=== PATIENT | male | born 1975 | race Two or more races ===

== ENCOUNTER 2020-11-24 12:34 | Emergency (ER) | payer BC, MEDICAID, OTHER ==
[~2020-11-24] VITALS: Ht 182.9 cm; Wt 105.6 kg
[2020-11-24 12:35] VITALS: BP 132/85
--- NOTE | 2020-11-24 12:46 | NUR ---
LINEN SORTER: PT AMBULATORY TO ROOM FROM LOBBY AT THIS TIME
== END 2020-11-24 13:43 | disposition home or self-care (01) ==
LOC: ED 13:30
DX: M54.41 Lumbago with sciatica, right side (principal)
CPT/HCPCS: 99283

== ENCOUNTER 2020-12-23 13:06 | Emergency (ER) | payer BC ==
[~2020-12-23] VITALS: Ht 182.9 cm; Wt 103.8 kg
[2020-12-23] MEDS ORDERED: GLYB5TAB3 PO (13:33)
[2020-12-23] MEDS ORDERED: PRED20TA PO (13:33)
[2020-12-23] MEDS ORDERED: METF10007 PO (13:33)
[2020-12-23] MEDS ORDERED: CYCL10TA2 PO (13:33)
--- NOTE | 2020-12-23 13:33 | NUR ---
Pt came in today d/t worsening back pain that is now wrapping around to the front. Pt previously seen and was prescribed flexeril and prednisone which pt reports are not helping. hx of back pain w/ sx
--- NOTE | 2020-12-23 13:42 | NUR ---
VSS. MEHTA. CALL LIGHT WITHIN REACH.
--- NOTE | 2020-12-23 14:27 | NUR ---
PT OFF THE FLOOR TO CT
[2020-12-23] MEDS ORDERED: SODIUM CHLORIDE FLUSH 10ML SYR IVF ONE (14:30)
[2020-12-23] MEDS ORDERED: KETOROLAC 30 MG/1 ML IV ONE (14:30)
[2020-12-23] MEDS ORDERED: HYDROmorphone 1 MG/ML, 1ML INJ IV ONE ×2 (14:30→16:00)
--- NOTE | 2020-12-23 14:32 | NUR ---
Note josey in EDM - 12/23/20 at 1433 by ARPAN PT DESCRIBES HEADACHE IMPROVED AND RATES DISCOMFORT 1/10. INITIAL DISCOMFORT WAS 8/10.
[2020-12-23] MEDS ORDERED: HYDROmorphone 1 MG/ML, 1ML INJ ONE ×2 (15:06→16:07)
[2020-12-23] MEDS ORDERED: KETOROLAC 30 MG/1 ML ONE (15:06)
--- NOTE | 2020-12-23 16:09 | NUR ---
dr suh spoke with dr leryo
[2020-12-23 17:00] VITALS: BP 133/74
== END 2020-12-23 17:03 | disposition home or self-care (01) ==
LOC: ED 13:18
DX: M54.16 Radiculopathy, lumbar region (principal); E11.9 Type 2 diabetes mellitus without complications
CPT/HCPCS: 72148; 96374; 96375; 96376; 99285; J1170; J1885

== ENCOUNTER 2020-12-25 19:44 | Emergency (ER) | payer BC ==
[~2020-12-25] VITALS: Ht 182.9 cm; Wt 110.0 kg
[~2020-12-25 19:44] MED LIST: CYCL10TA2 PO; GLYB5TAB3 PO; METF10007 PO; PRED20TA PO
[2020-12-25 22:28] VITALS: BP 110/76
[2020-12-26] MEDS ORDERED: DIAZEPAM 5 MG TABLET PO ONE
[2020-12-26] MEDS ORDERED: DIAZEPAM 5 MG TABLET ONE (00:03)
[2020-12-26] MEDS ORDERED: HYDROmorphone 1 MG/ML, 1ML INJ ONE ×2 (00:03→01:07)
[2020-12-26] MEDS ORDERED: HYDROmorphone 1 MG/ML, 1ML INJ IM ONE ×2 (01:00)
--- NOTE | 2020-12-26 01:20 | NUR ---
Patient/Caregiver given discharge instructions and they have confirmed that they understand the instructions. Patient wheeled to dc by
== END 2020-12-26 01:21 | disposition home or self-care (01) ==
LOC: ED 20:46
DX: M54.16 Radiculopathy, lumbar region (principal); M54.5 Low back pain; E11.9 Type 2 diabetes mellitus without complications; F17.210 Nicotine dependence, cigarettes, uncomplicated
CPT/HCPCS: 96372; 99284; 99406; J1170

== ENCOUNTER 2021-01-03 06:28 | Emergency (ER) | payer BC ==
[~2021-01-03] VITALS: Ht 182.9 cm; Wt 105.0 kg
--- NOTE | 2021-01-03 06:50 | NUR ---
ASSUMED CARE OF PT. HE IS HERE FOR LBP AND SCIATIC PAIN. SAW OUTPT MD, WAITING FOR CT AND WAS PRESCRIBED PAIN MEDS. THEY ARE NOT WORKING. VSNurys, TYSON. CALL LIGHT WITHIN REACH. DR. MERCADO BEDSIDE.
[2021-01-03] MEDS ORDERED: HYDROmorphone 2 MG/ML, 1ML IM ONE (07:00)
[2021-01-03] MEDS ORDERED: DIAZEPAM 5 MG TABLET PO ONE (07:00)
[2021-01-03] MEDS ORDERED: DIAZEPAM 5 MG TABLET ONE (07:03)
[2021-01-03] MEDS ORDERED: HYDROmorphone 2 MG/ML, 1ML ONE ×2 (07:04→08:14)
--- NOTE | 2021-01-03 07:11 | NUR ---
PT MEDICATED, SEE MAR. TYSON SHANKAR. CALL LIGHT WITHIN REACH.
--- NOTE | 2021-01-03 07:16 | NUR ---
DR. MERCADO REQUESTED DOSES OF PT NEWLY PRESCRIBED MEDS, IS BRINGING THEM HERE.
--- NOTE | 2021-01-03 07:46 | NUR ---
PT RATES PAIN 04/30. DR. MERCADO NOTIFIED, HE WANTS TO ALLOW MORE TIME FOR MEDICATION TO WORK. NADN WITH PT. CALL LIGHT W/IN REACH.
[2021-01-03] MEDS ORDERED: OXYC1TAB14 PO (07:51)
[2021-01-03] MEDS ORDERED: GABA600T7 PO (07:51)
[2021-01-03] MEDS ORDERED: METH-640 PO (07:51)
--- NOTE | 2021-01-03 08:03 | NUR ---
PRECEPT RN: HOME MEDICATIONS VERIFIED WITH PT.
--- NOTE | 2021-01-03 08:08 | NUR ---
F/U WITH PT PAIN DR. MERCADO WANTS TO PLACE IV FOR MEDICATION PAIN MANAGEMENT.
[2021-01-03] MEDS ORDERED: KETOROLAC 30 MG/1 ML ONE (08:14)
[2021-01-03] MEDS ORDERED: HYDROmorphone 2 MG/ML, 1ML IVPush PRN (08:30)
[2021-01-03] MEDS ORDERED: KETOROLAC 30 MG/1 ML IVPush ONE (08:30)
--- NOTE | 2021-01-03 08:35 | NUR ---
PIV STARTED. PT MEDICATED PER OCT. NADN. 95% RA. CALL LIGHT W/IN REACH
--- NOTE | 2021-01-03 09:06 | NUR ---
PT RATING PAIN 6/10. WHILE IN ROOM CHARTING PT DOZED AND WAS SNORING. VSS, NADN. CALL LIGHT W.IN REACH.
[2021-01-03 09:37] VITALS: BP 121/68
--- NOTE | 2021-01-03 09:42 | NUR ---
PatienT and given discharge instructions and they have confirmed that they understand the instructions. Patient still having back pain, utilizing wheel chair to get to car.
== END 2021-01-03 10:11 | disposition home or self-care (01) ==
LOC: ED 06:43
DX: M54.16 Radiculopathy, lumbar region (principal); E11.9 Type 2 diabetes mellitus without complications
CPT/HCPCS: 96372; 96374; 96375; 99284; J1170; J1885